=== PATIENT | female | born 1995 | race American Indian/Alaskan Native ===

== ENCOUNTER 2018-03-31 21:02 | Emergency (ER) | payer SELFPAY ==
[2018-03-31] MEDS ORDERED: TYLENOL ONE ×2 (21:15→21:17)
[2018-03-31] MEDS ORDERED: TYLENOL PO ONE (21:16)
[2018-03-31] MEDS ORDERED: CLEOCIN IM STA (22:07)
[2018-03-31 22:54] LABS: Eosinophils % (Auto) 0.5 % (0.0-4.3); Hematocrit 39.5 % (30.3-42.9); Hemoglobin 13.2 gm/dl (10.1-14.3); Lymphocytes # (Auto) 0.9 K/mm3 (1.2-5.4); Mean Corpuscular HGB Conc 33 % (30-34); Mean Corpuscular Hemoglobin 32 pg (28-32); Mean Corpuscular Volume 95 fl (79-97); Monocytes # (Auto) 0.5 K/mm3 (0.0-0.8); Monocytes % (Auto) 13.3 % (0.0-7.3); Platelet Count 262 K/mm3 (140-440); Red Blood Count 4.17 M/mm3 (3.65-5.03); Red Cell Distribution Width 12.8 % (13.2-15.2)
[2018-03-31 22:58] LABS: BUN/Creatinine Ratio 8; Blood Urea Nitrogen 5 mg/dL (7-17); Calcium 9.2 mg/dL (8.4-10.2); Hemolysis Index 23
--- NOTE | 2018-04-01 02:17 | Emergency Department Report ---
- General Chief Complaint: Fever Stated Complaint: FLU LIKE SX Time Seen by Provider: 04/01/18 02:09 Source: patient Mode of arrival: Ambulatory Limitations: No Limitations - History of Present Illness Initial Comments: Complains of headache day history of cough, congestion, coryza, myalgia, fever, chills,. States she was just recently diagnosed with the flu MD Complaint: cough, rhinorrhea, nasal congestion Severity: mild Consistency: constant Improves With: nothing Worsens With: nothing Context: sick contacts (her daughter was recently sick with a viral illness and now mom some of the same symptomology) Associated Symptoms: rhinorrhea, nasal congestion, nausea, other (also reports having an abscess to the right present last couple days seeks antibiotics for the abscesses. She does not wish to have it drained). denies: myalgias, shortness of breath, abdominal pain, right sweats, weight loss, hoarseness, ear pain - Related Data Previous Rx's Medication Instructions Recorded Last Taken Type Ketorolac [Toradol] 10 mg PO Q6H PRN #15 tablet 04/01/18 Unknown Rx Sulfamethoxazole/Trimethoprim 1 each PO BID #20 tablet 04/01/18 Unknown Rx [Bactrim Ds] cephALEXin [Keflex] 500 mg PO Q6HR #40 capsule 04/01/18 Unknown Rx Allergies Allergy/AdvReac Type Severity Reaction Status Date / Time No Known Allergies Allergy Verified 03/31/18 21:14 ED Review of Systems ROS: Stated complaint: FLU LIKE SX Other details as noted in HPI Constitutional: denies: chills, fever Eyes: denies: eye pain, eye discharge, vision change ENT: denies: ear pain, throat pain Respiratory: denies: cough, shortness of breath, wheezing Cardiovascular: denies: chest pain, palpitations Endocrine: no symptoms reported Gastrointestinal: denies: abdominal pain, nausea, diarrhea Genitourinary: denies: urgency, dysuria, discharge Musculoskeletal: denies: back pain, joint swelling, arthralgia Skin: denies: rash, lesions Neurological: denies: headache, weakness, paresthesias Psychiatric: denies: anxiety, depression Hematological/Lymphatic: denies: easy bleeding, easy bruising ED Past Medical Hx - Past Medical History Previous Medical History?: No - Surgical History Past Surgical History?: No Additional Surgical History: - Social History Smoking Status: Never Smoker Substance Use Type: Alcohol - Medications Home Medications: Home Medications Medication Instructions Recorded Confirmed Last Taken Type Ketorolac [Toradol] 10 mg PO Q6H PRN #15 tablet 04/01/18 Unknown Rx Sulfamethoxazole/Trimethoprim 1 each PO BID #20 tablet 04/01/18 Unknown Rx [Bactrim Ds] cephALEXin [Keflex] 500 mg PO Q6HR #40 capsule 04/01/18 Unknown Rx ED Physical Exam - General Limitations: No Limitations General appearance: alert, in no apparent distress - Head Head exam: Present: atraumatic, normocephalic - Eye Eye exam: Present: normal appearance, PERRL Pupils: Present: normal accommodation - ENT ENT exam: Present: normal exam, mucous membranes moist, other (nasal congestion bilaterally with skin intact, yellowish) - Neck Neck exam: Present: normal inspection, full ROM - Respiratory Respiratory exam: Present: normal lung sounds bilaterally. Absent: respiratory distress - Cardiovascular Cardiovascular Exam: Present: regular rate, normal rhythm. Absent: systolic murmur, diastolic murmur, rubs, gallop - GI/Abdominal GI/Abdominal exam: Present: soft, normal bowel sounds - Extremities Exam Extremities exam: Present: normal inspection, other (small fluctuant quarter siz e abscess to the right lymphangitis. No significant local cellulitis. No lymphadenopathy appreciated. No drainage) - Back Exam Back exam: Present: normal inspection - Neurological Exam Neurological exam: Present: alert, oriented X3 - Psychiatric Psychiatric exam: Present: normal affect, normal mood - Skin Skin exam: Present: warm, dry, intact, normal color. Absent: rash ED Course Vital Signs 03/31/18 03/31/18 21:05 21:46 Temperature 103.1 F H Pulse Rate 107 H Respiratory 22 18 Rate Blood Pressure 128/80 O2 Sat by Pulse 99 Oximetry ED Medical Decision Making - Lab Data Result diagrams: 03/31/18 22:21 03/31/18 22:21 - Medical Decision Making Offered incision and drainage for abscess. She opted to go to medication. Discussed with her about hot compresses and and appropriate follow-up also discussed with her about the need for compliance with anti-biotics s. Critical care attestation.: If time is entered above; I have spent that time in minutes in the direct care of this critically ill patient, excluding procedure time. ED Disposition Clinical Impression: Abscess, Viral syndrome Disposition: DC-01 TO HOME OR SELFCARE Is pt being admited?: No Does the pt Need Aspirin: No Condition: Stable Instructions: Viral Syndrome (ED), Abscess (ED) Referrals: [facility] [Provider Group] - 3-5 Days
[2018-04-01 02:48] VITALS: BP 105/64
== END 2018-04-01 02:50 | disposition home or self-care (01) ==
LOC: ED 21:02
DX: B34.9 Viral infection, unspecified (principal); L02.413 Cutaneous abscess of right upper limb
CPT/HCPCS: 36415; 80048; 85025; 99283